=== PATIENT | male | born 1980 | race Caucasian/White ===

== ENCOUNTER 2024-07-05 12:04 | Emergency (ER) | payer SELFPAY ==
[2024-07-05 12:04] VITALS: BP 129/99; PULSE 92; RESP 14; TEMP 36.6; O2SAT 98; BMI 30.3
--- NOTE | 2024-07-05 12:21 | ED.RN ---
Dr. Subramanian bedside
--- NOTE | 2024-07-05 12:34 | RAD_ITS ---
STUDY: X-RAY - LEFT HAND REASON FOR EXAM: Male, 44 years old. dog bite TECHNIQUE: 3 view(s) of the hand. COMPARISON: None. FINDINGS: Normal radiocarpal articulation. Normal distal radioulnar joint. Normal visualized carpal bones. Normal carpal articulations Normal carpometacarpal articulation of the thumb. Normal second through fifth carpometacarpal joints. Normal metacarpi. Normal metacarpophalangeal joint of the thumb. Normal interphalangeal joint of the thumb. Normal proximal and distal phalanges of the thumb. Normal metacarpophalangeal joints of the second through fifth fingers. Normal proximal and distal interphalangeal joints of the second through fifth fingers. Normal phalanges of the second through fifth fingers. The soft tissue structures are unremarkable. RAD/Hand Min 3 Views IMPRESSION: Normal x-ray examination of the hand. Electronically Signed: Jasiel Acosta MD at 12:56 EST ,
--- NOTE | 2024-07-05 12:38 | EX.ED.GENINJ ---
HPI History of Present Illness Chief Complaint: Bite Informant: patient Narrative Narrative: 44-year-old male presenting to the emergency room with right thumb injury. Patient was trying to separate his 2 dogs that were fighting when he got bit on the left medial aspect of his thumb. He notes his tetanus he believes is up-to-date. Not on blood thinners. Patient denies any other injuries. Patient states that the distal thumb feels different than normal. He believes that there is some decrease sensation compared to what it used to be. Tetanus Immunization: 5-10 years [facility] Medical History Cervical vertebral fusion Home Medications ?Medication ?Instructions ?Recorded ?Last Taken ?Type albuterol sulfate 90 mcg/actuation 2 puff inhalation Q4H PRN PRN 07/05/24 Unknown History aerosol inhaler shortness of breath or wheezing amoxicillin 875 mg-potassium 875 mg PO Q12H #13 TABLETS 07/05/24 Unknown Rx clavulanate 125 mg tablet fluticasone 250 mcg-salmeterol 50 1 ea inhalation BID 07/05/24 Unknown History mcg/dose blistr powdr for inhalation tadalafil 20 mg tablet mg PO PRN SOB 07/05/24 Unknown History Allergy/AdvReac Type Severity Reaction Status Date / Time No Known Allergies Allergy Verified 07/05/24 12:05 Social History Smoking Status: Heavy Smoker (>10/day) [facility] ED Constitutional Constitutional ED: Denies chills or weight loss Eyes Eyes: Denies change in vision or diplopia ENT ENT ED: Denies ear pain, rhinorrhea or sore throat Cardiovascular Cardiovascular: Denies chest pain, orthopnea, palpitations or racing heartbeat Respiratory/Chest Respiratory/Chest: Denies cough, dyspnea or orthopnea Gastrointestinal Gastrointestinal: Denies abdominal pain, diarrhea, nausea or vomiting Genitourinary Genitourinary ED: Reports other Details: See history of present illness ; Denies dysuria, hematuria or urinary frequency Musculoskeletal Musculoskeletal: Denies arthralgias or myalgias Integumentary Denies abscess or rash Neurologic Neurologic: Denies headache(s) or weakness Psychiatric Psychiatric: Denies anxiety, depression, suicidal ideation or suicidal thoughts Endocrine Endocrinology: Denies polydipsia, polyphagia or polyuria Allergic/Immunologic Allergic/Immunologic ED: Denies mouth swelling, tongue swelling or urticaria EXAM Physical Exam Const Vital Signs: 07/05/24 12:04 07/05/24 13:25 Temperature 97.9 F 97.9 F Temperature Source Temporal Pulse Rate 92 92 Respiratory Rate 14 14 Blood Pressure 129/99 H 129/99 H Blood Pressure Mean 109 109 Pulse Ox 98 98 Oxygen Delivery Method Room Air Positive well nourished and well developed General Appearance ED: well developed and NAD HEENT Reports normocephalic, head/scalp atraumatic and moist mucous membranes Eyes PERRL and EOMs intact bilaterally Neck no lymphadenopathy, supple and no JVD Resp normal respiratory effort and clear to auscultation bilaterally Cardio regular rate, regular rhythm and no murmurs GI normal to inspection, nondistended, normoactive bowel sounds and non-tender Palpation: soft Back/Spine no CVA tenderness and normal ROM Extremity Extremity Narrative: There is a 2.5 cm irregular laceration over the medial palmar aspect of the left thumb. Tendon function appears normal. Bleeding controlled. Neurovascular appears intact. There is a 1 cm L-shaped laceration over the fat pad of the distal left thumb. General Extremety ED: Negative for edema General Extremity: Negative for edema Neuro oriented x3 and CN's II-XII intact bilaterally Sensorium / Orientation: alert Motor Exam: strength 5/5 throughout Psych mental status grossly normal Mood & Affect: Negative for depressed or tearful Skin no rashes or lesions noted and no wounds MDM MDM MDM Narrative Medical decision making narrative: Differential diagnosis includes but not limited to animal bite laceration neurovascular injury tendon injury fracture retained foreign body Left thumb was anesthetized using a 1% lidocaine digital block. After adequate anesthesia the wound was washed with Shur-Clens and explored. No foreign bodies were notated. Wound at the base of the thumb was sutured using a total of 5 simple interrupted 3-0 Ethilon sutures. The wound on the volar distal aspect of the thumb was closed using a total of 3 simple interrupted 4-0 Ethilon sutures. Patient will be given a dose of Augmentin and started on the same. May depend interpretation of the plain films of the hand is no acute fracture no retained foreign body. Stitches will need to be removed in 10 days. Should the patient feel that he has some potential nerve damage she can follow-up with Dr. Lxu from hand. He understands this plan is comfortable with the History & Record Review Discussion w/independent historian: Patient Radiography Diagnostic Testing: Clinical Impression(s) from Imaging Studies Hand X-Ray 07/05/24 12:34 IMPRESSION: Normal x-ray examination of the hand. Electronically Signed: Jasiel Acosta MD at 12:56 EST Reading Location ID and State: [facility] Tel , Service support , Discharge Plan Triage Chief Complaint: Bite ED Provider: Kun Subramanian Dx/Rx/DC Orders Clinical Impression: Laceration of hand, Dog bite of hand Instructions: ED Dog Bite, ED Laceration, Hand: All Closures Prescriptions: New amoxicillin-pot clavulanate 875-125 mg tablet 875 mg PO Q12H Qty: 13 0RF No Action albuterol sulfate 90 mcg/actuation HFA aerosol inhaler 2 puff inhalation Q4H PRN PRN (Reason: shortness of breath or wheezing) fluticasone propion-salmeterol 250-50 mcg/dose blister with device 1 ea INHALATION BID tadalafil 20 mg tablet PO PRN (Reason: SOB) Primary Care Provider: Pablo Bermudez Referrals: Pablo Bermudez DO [Primary Care Provider] - 10 Day for suture removal Sarthak Olson MD [Med Staff - Active Staff] - As Needed (for hand surgery evaluation) Print Language: [place] Disposition Disposition: Home, Self Care Discharge Date/Time: 07/05/24 13:26
[2024-07-05] MEDS: Lidocaine 1% (20 ml mdv) 20 ML Vial INFILT (12:50)
[2024-07-05] MEDS: Amox/Clavulanate 875 MG Tablet PO (13:14)
--- NOTE | 2024-07-05 13:20 | ED.RN ---
Patient took dog bite form with self at time of discharge that he was filling out for nursing staff. ED receptionist secretary and charge notified.
[2024-07-05 13:25] VITALS: BP 129/99; PULSE 92; RESP 14; TEMP 36.6; O2SAT 98
== END 2024-07-05 13:26 | disposition home or self-care (01) ==
PROVIDERS: Emergency Provider Emergency Medicine; PCP Family Medicine; Visit Provider Emergency Medicine
DX: S61.011A Laceration without foreign body of right thumb without damage to nail, initial encounter (principal); W54.0XXA Bitten by dog, initial encounter; Y93.89 Activity, other specified; F17.200 Nicotine dependence, unspecified, uncomplicated
CPT/HCPCS: 12002; 73130; 99284